=== PATIENT | male | born 1965 | race Caucasian/White ===

== ENCOUNTER → 2020-02-18 | Outpatient (CLI) | payer OTHER | END | disposition home or self-care (01) | LOC: LAB 16:50 | PROVIDERS: ATTEND Internal Medicine Cardiovascular Disease | DX: Z20.828 Contact with and (suspected) exposure to other viral communicable diseases (principal) | CPT/HCPCS: U0003-CS ==

== ENCOUNTER 2020-02-27 19:51 | Emergency (ER) | payer OTHER ==
[~2020-02-27] VITALS: Ht 162.6 cm; Wt 76.0 kg
--- NOTE | 2020-02-27 19:54 | PHYS DOC ---
Past History Past Medical History: No Pertinent History Past Surgical History: No Surgical History Alcohol Use: Rarely General Adult EDM: Chief Complaint: finger injury HPI: HPI: Patient is a 54 year old male who presents for evaluation of a right middle finger injury. 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 It had been under a lot of pressure and snapped. There is a puncture wound to the tip of that affected finger. The finger is also covered in grease. Full range of motion to the affected finger was noted. There is no nailbed injury. Patient clearly states his tetanus shot is up-to-date. Patient states the pain starts in the hand and radiates down into his wrist and into his forearm. No other fingers are obviously involved Review of Systems: Review of Systems: Constitutional: Denies fever or chills Eyes: Denies change in visual acuity HENT: Denies nasal congestion or sore throat Respiratory: Denies cough or shortness of breath Cardiovascular: Denies chest pain or edema GI: Denies abdominal pain, nausea, vomiting : Denies dysuria Musculoskeletal: Denies back pain has right hand joint pain Integument: Denies rash Neurologic: Denies headache, focal weakness or sensory changes Endocrine: Denies polyuria or polydipsia Lymphatic: Denies swollen glands Psychiatric: Denies depression or anxiety Heart Score: Risk Factors: Risk Factors: DM, Current or recent (<one month) smoker, HTN, HLP, family history of CAD, obesity. Risk Scores: Score 0 - 3: 2.5% MACE over next 6 weeks - Discharge Home Score 4 - 6: 20.3% MACE over next 6 weeks - Admit for Clinical Observation Score 7 - 10: 72.7% MACE over next 6 weeks - Early Invasive Strategies Physical Exam: PE: Constitutional: Well developed, well nourished, mild acute distress, non-toxic appearance. [] HENT: Normocephalic, atraumatic, bilateral external ears normal, oropharynx moist, no oral exudates, nose normal. [] Eyes: PERRL, EOMI, conjunctiva normal, no discharge. [] Neck: Normal range of motion, no tenderness. [] Cardiovascular:Heart rate regular rhythm, no murmur [] Lungs & Thorax: Bilateral breath sounds clear to auscultation [] Abdomen: Bowel sounds normal, soft, no tenderness [] Skin: Warm, dry, no erythema, no rash. [] Back: No tenderness [] Extremities: Moderate tenderness distal right middle finger, superficial laceration measuring 1 cm present, no cyanosis, no clubbing, ROM intact, mild edema to fingertip. [] Neurologic: Alert and oriented, normal motor function, normal sensory function, no focal deficits noted. [] Psychologic: Affect normal, judgement normal, mood normal. [] EKG: EKG: [] Radiology/Procedures: Radiology/Procedures: [address] [address] IMAGING REPORT Signed PATIENT: TREVER PALACIOS ACCOUNT: [id number] : 1965 LOCATION: ER AGE: 54 SEX: M EXAM STATUS: REG ER ORD. PHYSICIAN: DOROTHY JEWELL DO REASON: Crush injury to middle finger, pain radiating into hand and wrist PROCEDURE: HAND RIGHT 3V Three-view right hand and wrist radiographs 02/27/2020 CLINICAL HISTORY: Crush injury to the right hand and wrist. PA, lateral and oblique digital radiographs of the right wrist and right hand were obtained. No fracture or dislocation of the right wrist is seen. No fracture or dislocation of the right hand is seen. No radiopaque foreign body is seen. Mild degenerative changes are seen involving the third MCP joint. Moderate degenerative changes are seen involving the radial aspect of the midcarpal joint. IMPRESSION: No fracture or dislocation of the right hand or wrist is seen. Electronically signed by: Oral Soriano MD (02/27/2020 8:37 PM) [id number] DICTATED AND SIGNED BY: ORAL SORIANO MD DATE: 02/27/202036 CC: DOROTHY JEWELL DO; ED MCKINNEY MD ~ [] Course & Med Decision Making: Course & Med Decision Making Pertinent Labs and Imaging studies reviewed. (See chart for details) [] Dragon Disclaimer: Dragon Disclaimer: This electronic medical record was generated, in whole or in part, using a voice recognition dictation system. 2118 stable, x-rays reviewed. No underlying fractures noted on hand or finger. There is a small laceration present but do to this being a contaminated wound was left open to drain. It had good approximation naturally. Prescription for Keflex given. No indication for sutures at this time Departure Departure: Impression: Primary Impression: Laceration of right middle finger Qualified Codes: S61.212A - Laceration without foreign body of right middle finger without damage to nail, initial encounter Additional Impression: Contusion of right hand including fingers Qualified Codes: S60.221A - Contusion of right hand, initial encounter; S60.00XA - Contusion of unspecified finger without damage to nail, initial encounter Disposition: HOME/RESIDENCE PRIOR TO ADM Condition: STABLE Referrals: ED MCKINNEY MD (PCP) Patient Instructions: Crush Injury, Fingers or Toes Additional Instructions: Keep area clean and dry, apply triple antibiotic daily topical to wound, take antibiotic as directed. Wear splint to protect your finger for the next several days as well. Should infection develop have your doctor recheck it right away Scripts Cephalexin (CEPHALEXIN) 500 Mg Capsule 1 CAP PO QID for infection, #40 CAP Prov: DOROTHY JEWELL DO 02/27/20 Justification of Admission: Justification of Admission: Justification of Admission Dx: N/A DOROTHY JEWELL DO Feb 27, 2020 19:53
[2020-02-27 19:55] VITALS: BP 137/88
--- NOTE | 2020-02-27 20:40 | RAD ---
Three-view right hand and wrist radiographs 02/27/2020 CLINICAL HISTORY: Crush injury to the right hand and wrist. PA, lateral and oblique digital radiographs of the right wrist and right hand were obtained. No fracture or dislocation of the right wrist is seen. No fracture or dislocation of the right hand is seen. No radiopaque foreign body is seen. Mild degenerative changes are seen involving the third MCP joint. Moderate degenerative changes are seen involving the radial aspect of the midcarpal joint. IMPRESSION: No fracture or dislocation of the right hand or wrist is seen. Electronically signed by: Oral Soriano MD (02/27/2020 8:37 PM) [id number]
[2020-02-27] MEDS ORDERED: CEPH500C PO (21:23)
[2020-02-27] MEDS ORDERED: CEPHALEXIN 250 MG CAPSULE PO ONE (21:30)
== END 2020-02-27 21:30 | disposition home or self-care (01) ==
LOC: ER 19:51
DX: S61.212A Laceration without foreign body of right middle finger without damage to nail, initial encounter (principal); S60.221A Contusion of right hand, initial encounter; S60.00XA Contusion of unspecified finger without damage to nail, initial encounter; W27.8XXA Contact with other nonpowered hand tool, initial encounter; Y93.89 Activity, other specified; Y92.89 Other specified places as the place of occurrence of the external cause; Y99.8 Other external cause status
CPT/HCPCS: 73110; 73130; 99284